=== PATIENT | female | born 1955 | race Caucasian/White ===

== ENCOUNTER 2020-05-20 07:31 | Emergency (ER) | payer OTHER ==
[~2020-05-20 07:31] MED LIST: ADULT LOW DOSE81 MG PO; ARMOUR THYROID90 MG PO; AUGMENTIN 875-1 EACH PO; CALCIUM500 MG PO; CEFUROXIME500 MG PO; DECADRON6 MG PO; DULERA 100 MCG8.8 GM INH; FLONASE 0.05% N16 GM; FLOVENT 220.1 GM/INH INH; HYDROCHLOROTHIA25 MG PO; IBUPROFEN800 MG PO; IPRAT-ALBUT 0.5-3 ML INH; MAGNESIUM500 MG PO; MECLIZINE HCL25 MG PO; NASONEX17 GM; NORVASC10 MG PO; OMEPRAZOLE40 MG PO; PROAIR DIGIHAL90 MCG INH; SIMVASTATIN20 MG PO; TENORMIN 25 MG25 MG PO; TESSALON PERLE100 MG PO; THYROLAR PO; ZOFRAN 4 MG TAB4 MG PO; ZOFRAN ODT 4 MG4 MG PO; ZYRTEC10 M3 PO
[2020-05-20 09:04] LABS: HEMOGLOBIN 12.8 gm/dl (12.3-15.3); RED BLOOD COUNT 4.61 M/UL (4.00-5.10); WHITE BLOOD COUNT 6.8 K/UL (4.5-11.0)
[2020-05-20 09:34] LABS: BUN/CREATININE RATIO 17 (0-10)
[2020-05-20] MEDS ORDERED: ZOFRAN ODT 4 MG4 MG PO (10:40)
[2020-05-20] MEDS ORDERED: CEPHALEXIN500 MG PO (10:40)
== END 2020-05-20 10:52 | disposition home or self-care (01) ==
LOC: ER1 07:31
PROVIDERS: Emergency Medicine
DX: U07.1 COVID-19 (principal); N39.0 Urinary tract infection, site not specified; I10 Essential (primary) hypertension; Z79.899 Other long term (current) drug therapy; Z88.1 Allergy status to other antibiotic agents; Z88.8 Allergy status to other drugs, medicaments and biological substances
CPT/HCPCS: 0240U; 36415; 80053; 81001; 82550; 82553; 83690; 83735; 83874; 84484; 85025; 87086; 96374; 99283; J2405; J7030

== ENCOUNTER 2020-06-01 12:56 | Emergency (ER) | payer OTHER ==
[~2020-06-01 12:56] MED LIST changes: +CEPHALEXIN500 MG PO
[2020-06-01 14:36] LABS: HEMOGLOBIN 13.2 gm/dl (12.3-15.3); RED BLOOD COUNT 4.93 M/UL (4.00-5.10); WHITE BLOOD COUNT 9.8 K/UL (4.5-11.0)
[2020-06-01 14:59] LABS: BUN/CREATININE RATIO 36 (0-10)
[2020-06-01] MEDS ORDERED: ONDANSETRON ODT4 MG SL (18:04)
[2020-06-01] MEDS ORDERED: MECLIZINE HCL25 MG PO (18:04)
[2020-06-01] MEDS ORDERED: OMEPRAZOLE20 M1 PO (18:04)
== END 2020-06-01 18:16 | disposition home or self-care (01) ==
LOC: ER1 12:56
PROVIDERS: Physician Assistant
DX: R10.11 Right upper quadrant pain (principal); H65.91 Unspecified nonsuppurative otitis media, right ear; R51.9 Headache, unspecified; R73.9 Hyperglycemia, unspecified; R42 Dizziness and giddiness; I10 Essential (primary) hypertension; Z85.9 Personal history of malignant neoplasm, unspecified; Z85.828 Personal history of other malignant neoplasm of skin; Z79.899 Other long term (current) drug therapy
CPT/HCPCS: 70450; 80053; 81001; 83690; 84484; 85025; 93005; 96374; 96375; 99284; J2405; J3360; J7030; Q9967

== ENCOUNTER → 2020-07-09 | Outpatient (CLI) | payer OTHER ==
[~2020-07-09] MED LIST changes: +OMEPRAZOLE20 M1 PO; +ONDANSETRON ODT4 MG SL
== END ==
LOC: KOH-I 10:16
DX: J01.81 Other acute recurrent sinusitis (principal); J32.4 Chronic pansinusitis
CPT/HCPCS: 70486

== ENCOUNTER 2020-11-15 18:13 | Emergency (ER) | payer OTHER ==
[2020-11-15 19:02] LABS: HEMOGLOBIN 11.9 gm/dl (12.3-15.3); RED BLOOD COUNT 4.26 M/UL (4.00-5.10); WHITE BLOOD COUNT 12.5 K/UL (4.5-11.0)
[2020-11-15 19:20] LABS: BUN/CREATININE RATIO 28 (0-10)
== END 2020-11-15 21:55 | disposition home or self-care (01) ==
LOC: ER1 18:13
PROVIDERS: Emergency Medicine
DX: S20.212A Contusion of left front wall of thorax, initial encounter (principal); S80.02XA Contusion of left knee, initial encounter; I10 Essential (primary) hypertension; E03.9 Hypothyroidism, unspecified; Z79.899 Other long term (current) drug therapy; V49.50XA Passenger injured in collision with unspecified motor vehicles in traffic accident, initial encounter; Z20.822 Contact with and (suspected) exposure to COVID-19; Y92.410 Unspecified street and highway as the place of occurrence of the external cause
CPT/HCPCS: 70450; 71045; 71260; 72125; 73564; 80053; 81001; 82550; 82553; 83690; 83735; 83874; 84100; 84484; 85025; 85610; 85730; 86850; 86900; 86901; 90471; 90715; 93005; 99284; Q9967; U0002

== ENCOUNTER 2021-02-02 23:01 | Emergency (ER) | payer OTHER ==
[2021-02-03 00:20] LABS: HEMOGLOBIN 12.1 gm/dl (12.3-15.3); RED BLOOD COUNT 4.44 M/UL (4.00-5.10); WHITE BLOOD COUNT 8.1 K/UL (4.5-11.0)
[2021-02-03 00:44] LABS: BUN/CREATININE RATIO 26 (0-10)
[2021-02-03] MEDS ORDERED: OMNICEF 300 MG300 MG PO (03:33)
== END 2021-02-03 04:29 | disposition home or self-care (01) ==
LOC: ER1 23:01
PROVIDERS: Physician Assistant
DX: N39.0 Urinary tract infection, site not specified (principal); I10 Essential (primary) hypertension; E07.9 Disorder of thyroid, unspecified; R53.83 Other fatigue
CPT/HCPCS: 71045; 80053; 81001; 82550; 82553; 83874; 84439; 84443; 84484; 85025; 93005; 99284

== ENCOUNTER 2021-06-09 10:19 | Emergency (ER) | payer OTHER ==
[~2021-06-09 10:19] MED LIST changes: +OMNICEF 300 MG300 MG PO
[2021-06-09 11:43] LABS: HEMOGLOBIN 12.9 gm/dl (12.3-15.3); RED BLOOD COUNT 4.72 M/UL (4.00-5.10); WHITE BLOOD COUNT 8.6 K/UL (4.5-11.0)
[2021-06-09 12:30] LABS: BUN/CREATININE RATIO 23 (0-10)
[2021-06-09] MEDS ORDERED: CEPHALEXIN500 M1 PO (15:43)
[2021-06-09] MEDS ORDERED: VISTARIL 50 MG50 MG PO (15:43)
== END 2021-06-09 16:00 | disposition home or self-care (01) ==
LOC: ER1 10:19
PROVIDERS: Physician Assistant
DX: R07.89 Other chest pain (principal); R00.2 Palpitations; R60.0 Localized edema; N39.0 Urinary tract infection, site not specified; I10 Essential (primary) hypertension; Z85.828 Personal history of other malignant neoplasm of skin
CPT/HCPCS: 71045; 80053; 81001; 82550; 82553; 83690; 83735; 83880; 84439; 84443; 84484; 85025; 87086; 93005; 99285; Q0177

== ENCOUNTER 2021-07-01 05:54 | Emergency (ER) | payer OTHER ==
[~2021-07-01 05:54] MED LIST changes: +CEPHALEXIN500 M1 PO; +MACROBID 100 M100 MG PO; +VISTARIL 50 MG50 MG PO
[2021-07-01 06:48] LABS: RED BLOOD COUNT 4.72 M/UL (4.00-5.10); WHITE BLOOD COUNT 7.6 K/UL (4.5-11.0)
[2021-07-01 07:09] LABS: BUN/CREATININE RATIO 26 (0-10)
[2021-07-01] MEDS ORDERED: OMNICEF 300 MG300 MG PO (08:44)
[2021-07-01] MEDS ORDERED: ZOFRAN 4 MG TAB4 MG PO (08:44)
== END 2021-07-01 08:54 | disposition home or self-care (01) ==
LOC: ER1 05:54
PROVIDERS: Physician Assistant Medical
DX: N39.0 Urinary tract infection, site not specified (principal); E03.9 Hypothyroidism, unspecified; I10 Essential (primary) hypertension
CPT/HCPCS: 36415; 80053; 81001; 83605; 85025; 87040; 96374; 99284; J0696; Q9967

== ENCOUNTER → 2021-08-08 | Outpatient (CLI) | payer OTHER | LOC: EMI 13:45 | DX: M50.30 Other cervical disc degeneration, unspecified cervical region (principal); M48.02 Spinal stenosis, cervical region; M54.6 Pain in thoracic spine; M51.34 Other intervertebral disc degeneration, thoracic region | CPT/HCPCS: 72141; 72146 ==